=== PATIENT | female | born 1970 | race Caucasian/White ===

== ENCOUNTER 2016-08-14 13:51 | Emergency (ER) | payer MEDICAID ==
[~2016-08-14] VITALS: Ht 165.1 cm; Wt 77.1 kg
[2016-08-14 13:51] VITALS: BP_SYST 125
[2016-08-14] MEDS ORDERED: LORazepam 2 MG/ML VIAL (FOR ER USE) IM ONE (15:00)
[2016-08-14] MEDS ORDERED: KETOROLAC TROMETHAMINE 60 MG/2 ML VIAL IM ONE (17:15)
[2016-08-14 19:20] VITALS: BP_SYST 116
== END 2016-08-14 19:20 | disposition home or self-care (01) ==
LOC: SED 13:51
DX: F41.0 Panic disorder [episodic paroxysmal anxiety] (principal); F41.9 Anxiety disorder, unspecified; Z88.5 Allergy status to narcotic agent
CPT/HCPCS: 72050; 96372; 99284; J1885; J2060